=== PATIENT | male | born 1965 | race Caucasian/White ===

== ENCOUNTER 2016-04-28 21:52 | Emergency (ER) | payer SELFPAY ==
[2016-04-28] MEDS ORDERED: ASPIRIN 81 MG CHEW TAB ONE (22:17)
[2016-04-28] MEDS ORDERED: KETOROLAC 30 MG/ML VIAL ONE (22:46)
== END 2016-04-29 00:08 | disposition home or self-care (01) ==
LOC: ER 21:52
DX: M94.0 Chondrocostal junction syndrome [Tietze] (principal)
CPT/HCPCS: 36415; 71010; 80053; 82550; 83735; 84484; 85025; 85379; 85610; 85730; 93005; 96374